=== PATIENT | male | born 2000 | race Two or more races ===

== ENCOUNTER 2023-02-02 16:53 | Emergency (ER) | payer SELFPAY ==
[2023-02-02 17:03] VITALS: BP 132/69; PULSE 102; RESP 18; TEMP 98.2; BMI 25.8
[2023-02-02] MEDS ORDERED: SODIUM CHLORIDE 0.9% 1000 ML INFUS.BAG IV ONE (18:31)
== END 2023-02-02 18:10 | disposition left against medical advice (07) ==
LOC: JER 16:53
DX: S09.93XA Unspecified injury of face, initial encounter (principal); R55 Syncope and collapse; W19.XXXA Unspecified fall, initial encounter
CPT/HCPCS: 93005; 93010; 99283-25